=== PATIENT | female | born 1990 | race Caucasian/White ===

== ENCOUNTER 2017-12-14 10:09 | Emergency (ER) | payer OTHER ==
[2017-12-14] MEDS ORDERED: NS 500 ML IV ONE (10:20)
[2017-12-14 11:01] LABS: PLATELET COUNT 226 10^3/uL (150-400)
--- NOTE | 2017-12-14 11:12 | EDPHY ---
H & P Time Seen by Provider: 12/14/17 10:20 HPI/ROS: HPI Lightheaded, fast heart rate. 27-year-old female by ambulance. She comes from her substance abuse treatment program. She is from [place]. She has been living here for 2 weeks now. She has a history of heroin and methamphetamine abuse. She has been clean and sober for 20 days. She reports that over at least the last month she has had intermittent episodes of feeling lightheaded and having a fast heart rate, worse when she stands up. She also describes having some intermittent chest tightness. Her lightheadedness was worse today and has been worse since she moved to [place]. I received a call from Dr. Burnett, who is 1 of the physicians involved with her substance abuse treatment program, that she was having episodes of of lightheadedness as noted above. She has not lost consciousness. The patient denies any shortness of breath. She denies any chest pain or discomfort at this time. Her last menstrual period was 2 weeks ago. She denies any unusually heavy or frequent menses. No history of trauma. ROS: Constitutional: No fever, no chills. As above. Eyes: No discharge. No changes in vision. ENT: No sore throat. No nasal congestion or rhinorrhea. Respiratory: No cough. No shortness of breath. Cardiac: As above. Gastrointestinal: No abdominal pain, no vomiting, no diarrhea. Genitourinary: No hematuria. No dysuria or increased frequency with urination. Musculoskeletal: No back pain. No neck pain. No myalgias or arthralgias. Skin: No rashes. Neurological: No headache. No focal weakness or altered sensation. Past medical history: Depression. Substance abuse. Prescription medications include trazodone, Wellbutrin and Seroquel. Social history: Nonsmoker. Here by herself. As above. Physical Exam: General Appearance: Alert, no distress, mildly anxious. This patient is responding to questions appropriately and in full sentences. This patient appears well-hydrated and well-nourished. Eyes: Pupils equal and round no pallor or injection. No lid edema, erythema or injection. Respiratory: There are no retractions, lungs are clear to auscultation with good air movement bilaterally. Cardiovascular: Regular rate and rhythm. Borderline tachycardia. No murmur. Gastrointestinal: Abdomen is soft and nontender, no masses, bowel sounds normal. No focal tenderness at McBurney's point. No Cho sign. Neurological: Motor sensory function is grossly intact. Cranial nerves are normal. Gait is normal. Skin: Warm and dry, no rashes. Musculoskeletal: Neck is supple and nontender. Extremities are symmetrical. All joints range without pain or impingement. Psychiatric: No agitation. No depression. Database: EKG: EKG time is 10:30 a.m.; EKG shows a narrow complex normal sinus rhythm with a ventricular rate of 91. The RI, QRS, QT intervals are within normal limits. There are no ST-T wave changes indicative of ischemic or injury pattern. No evidence of right heart strain. No evidence of WPW, Brugada syndrome, hypertrophic cardiomyopathy. Interpreted by me. Imaging: Chest x-ray AP portable; the cardiac mediastinal silhouette is unremarkable. No evidence of infiltrate or pneumothorax. No acute cardiopulmonary disease process noted. Interpreted by me. Procedures: Emergency department course: Triage vital signs reviewed. She is borderline tachycardic. Vital signs are otherwise normal. She is afebrile. IV was placed. She was started on IV normal saline with 1 L to be given over the next hour. EKG obtained and reviewed by myself. 1:15 p.m., the patient was re-evaluated. She is resting comfortably at this time. She has no complaints currently. Her vital signs were reviewed. Her cardiac catheterization technologist shows a narrow complex sinus rhythm with ventricular rate of 92. I discussed the results of her emergency department workup with her thoroughly. She feels comfortable being discharged at this time. She will follow up with Dr. Burnett. Return to emergency department precautions were reviewed with her. All of her questions were answered. 1:30 p.m., I spoke with Dr. Burnett. The patient's emergency department course and workup was discussed with Dr. Burnett in detail. She feels comfortable with the patient being discharged as well. She will follow up with this patient this week. The patient's remaining emergency department course under my care has been uneventful. The patient was discharged in good condition. Differential Diagnosis: The differential diagnosis on this patient includes but is not limited to dehydration, anemia, cocaine washout syndrome. Arrhythmia, acute coronary syndrome, pulmonary embolism, ectopic , thyroid disorder, serious bacterial infection unlikely. This represents a partial list of diagnoses considered. These considerations are based on history, physical exam, past history, reassessment and diagnostic testing. Smoking Status: Current every day smoker Constitutional: Initial Vital Signs Temperature (C) 36.7 C 12/14/17 10:16 Heart Rate 99 12/14/17 10:16 Respiratory Rate 16 12/14/17 10:16 Blood Pressure 105/70 12/14/17 10:16 O2 Sat (%) 97 12/14/17 10:16 O2 Delivery Mode Room Air Allergies/Adverse Reactions: cefaclor [From [facility]] Allergy (Verified 12/14/17 10:15) Penicillins Allergy (Verified 12/14/17 10:15) Home Medications: Medication Instructions Recorded Seroquel 12/14/17 Wellbutrin 150mg SR (*) 12/14/17 traZODone 12/14/17 Medical Decision Making - Diagnostics Imaging Results: Imaging Impressions Chest X-Ray 12/14/17 10:20 Impression: Normal chest x-ray. - Data Points Laboratory Results: Laboratory Results 12/14/17 10:50 12/14/17 10:50 12/14/17 12/14/17 12/14/17 10:52 10:50 10:50 WBC RBC Hgb Hct MCV MCH MCHC RDW Plt Count MPV Neut % (Auto) Lymph % (Auto) [place] % (Auto) Eos % (Auto) Baso % (Auto) Nucleat RBC Rel Count Absolute Neuts (auto) Absolute Lymphs (auto) Absolute Monos (auto) Absolute Eos (auto) Absolute Basos (auto) Absolute Nucleated RBC Immature Gran % Immature Gran # D-Dimer Sodium Potassium Chloride Carbon Dioxide Anion Gap BUN Creatinine Estimated GFR Glucose Calcium POC Troponin I 0.00 ng/mL ng/mL (0.00-0.08) TSH 1.570 uIU/mL uIU/mL (0.465-4.680) Beta HCG, Qual NEGATIVE 12/14/17 12/14/17 12/14/17 10:50 10:50 10:50 WBC 7.81 10^3/uL 10^3/uL (3.80-9.50) RBC 5.07 10^6/uL 10^6/uL (4.18-5.33) Hgb 14.9 g/dL g/dL (12.6-16.3) Hct 43.7 % % (38.0-47.0) MCV 86.2 fL fL (81.5-99.8) MCH 29.4 pg pg (27.9-34.1) MCHC 34.1 g/dL g/dL (32.4-36.7) RDW 13.2 % % (11.5-15.2) Plt Count 226 10^3/uL 10^3/uL (150-400) MPV 10.9 fL fL (8.7-11.7) Neut % (Auto) 57.4 % % (39.3-74.2) Lymph % (Auto) 33.0 % % (15.0-45.0) [place] % (Auto) 6.3 % % (4.5-13.0) Eos % (Auto) 2.4 % % (0.6-7.6) Baso % (Auto) 0.6 % % (0.3-1.7) Nucleat RBC Rel Count 0.0 % % (0.0-0.2) Absolute Neuts (auto) 4.48 10^3/uL 10^3/uL (1.70-6.50) Absolute Lymphs (auto) 2.58 10^3/uL 10^3/uL (1.00-3.00) Absolute Monos (auto) 0.49 10^3/uL 10^3/uL (0.30-0.80) Absolute Eos (auto) 0.19 10^3/uL 10^3/uL (0.03-0.40) Absolute Basos (auto) 0.05 10^3/uL 10^3/uL (0.02-0.10) Absolute Nucleated RBC 0.00 10^3/uL 10^3/uL (0-0.01) Immature Gran % 0.3 % % (0.0-1.1) Immature Gran # 0.02 10^3/uL 10^3/uL (0.00-0.10) D-Dimer < 0.27 ug/mLFEU ug/mLFEU (0.00-0.50) Sodium 140 mEq/L mEq/L (135-145) Potassium 4.2 mEq/L mEq/L (3.3-5.0) Chloride 103 mEq/L mEq/L (97-110) Carbon Dioxide 25 mEq/l mEq/l (22-31) Anion Gap 12 mEq/L mEq/L (6-14) BUN 13 mg/dL mg/dL (7-23) Creatinine 0.7 mg/dL mg/dL (0.6-1.0) Estimated GFR > 60 Glucose 84 mg/dL mg/dL (70-100) Calcium 10.0 mg/dL mg/dL (8.5-10.4) POC Troponin I TSH Beta HCG, Qual Medications Given: Discontinued Medications Sodium Chloride (Ns) 500 mls @ 1,000 mls/hr IV EDNOW ONE PRN Reason: Protocol Stop: 12/14/17 10:49 Last Admin: 12/14/17 11:06 Dose: 500 mls Point of Care Test Results: Chemistry 12/14/17 10:52 POC Troponin I 0.00 ng/mL ng/mL (0.00-0.08) Departure - Departure Disposition: Home, Routine, Self-Care Clinical Impression: Lightheaded Condition: Good Instructions: Lightheadedness (ED) Additional Instructions: Read and follow provided instructions. Follow-up with your primary care physician, Dr. Burnett, within the next 2-3 days for re-evaluation. I spoke with her on the phone today and she is aware of your test results and that we are discharging you home. Keep yourself well hydrated. Drink lots of fluids. Return to the emergency department for worsening symptoms, fainting, chest pain , shortness of breath or other serious concerns. Referrals: NONE *PRIMARY CARE P,. [Primary Care Provider] - As per Instructions
[2017-12-14 13:44] VITALS: BP 100/56
--- NOTE | 2017-12-14 15:04 | CPEKG ---
Test Reason : OPEN Blood Pressure : / mmHG Vent. Rate : 091 BPM Atrial Rate : 090 BPM P-R Int : 136 ms QRS Dur : 091 ms QT Int : 342 ms P-R-T Axes : 069 045 066 degrees QTc Int : 421 ms Sinus rhythm Confirmed by Bladimir Woods ([id number]) on 12/14/2017 3:03:21 PM Referred By: Confirmed By:Bladimir Woods
== END 2017-12-14 13:43 | disposition home or self-care (01) ==
DX: R42 Dizziness and giddiness (principal); R00.0 Tachycardia, unspecified; E86.9 Volume depletion, unspecified; F19.21 Other psychoactive substance dependence, in remission; F32.9 Major depressive disorder, single episode, unspecified; F17.210 Nicotine dependence, cigarettes, uncomplicated; Z88.0 Allergy status to penicillin
CPT/HCPCS: 84484-PO